=== PATIENT | male | born 1950 | race Caucasian/White ===

== ENCOUNTER 2017-11-14 17:13 | Inpatient (IN) | payer MEDICARE, OTHER ==
[2017-11-14] MEDS: IPRATROPIUM (NEB) 0.5 MG/2.5 ML AMP INH (17:22)
[2017-11-14] MEDS: ALBUTEROL 0.5% (NEB) 2.5 MG/0.5 ML AMP INH (17:22)
[2017-11-14] MEDS: METHYLPREDNISOLONE 125 MG INJ IV (17:42)
[2017-11-14] MEDS: FUROSEMIDE 40 MG INJ IV (17:42)
[2017-11-14] MEDS: ASPIRIN 81 MG TAB PO (17:47)
[2017-11-14 17:53] LABS: ABNORMAL IP MESSAGE 1; HEMATOCRIT 27.6 % (42.0-52.0); HEMOGLOBIN 8.9 g/dl (14.0-18.0); MEAN CORPUSCULAR HEMOGLOBIN 23.7 pg (29.0-33.0); MEAN CORPUSCULAR HGB CONC 32.2 g/dl (32.0-37.0); MEAN CORPUSCULAR VOLUME 73.4 fl (82.0-101.0); MEAN PLATELET VOLUME 10.7 fl (7.4-10.4); PLATELET COUNT 182 10^3/UL (140-415); POSITIVE DIFF @See below; RED BLOOD COUNT 3.76 10^6/ul (4.70-6.10); RED CELL DISTRIBUTION WIDTH 19.7 % (11.5-14.5)
[2017-11-14 17:53] LABS: WHITE BLOOD COUNT 5.4 10^3/ul (4.8-10.8)
[2017-11-14 17:56] LABS: ADD MAN DIFF? YES
[2017-11-14 17:57] LABS: PATH REVIEW? YES
[2017-11-14] MEDS ORDERED: ONDANSETRON 4 MG INJ (18:08)
[2017-11-14] MEDS: ONDANSETRON 4 MG INJ IV (18:12)
[2017-11-14 18:21] LABS: ALANINE AMINOTRANSFERASE 68 IU/L (13-69); ALBUMIN 2.8 g/dl (3.3-4.9); ALBUMIN/GLOBULIN RATIO 0.93; ALKALINE PHOSPHATASE 121 IU/L (42-121); ANION GAP 18 (8-16); ASPARTATE AMINO TRANSFERASE 51 IU/L (15-46); BILIRUBIN,INDIRECT 0.4 mg/dl (0-1.1); BILIRUBIN,TOTAL 0.4 mg/dl (0.2-1.3); BLOOD UREA NITROGEN 97 mg/dl (7-20); CALCIUM 9.1 mg/dl (8.4-10.2); CARBON DIOXIDE 23 mmol/L (21-31); CHLORIDE 93 mmol/L (97-110); GLUCOSE 88 mg/dl (70-220); LIPASE 185 U/L (23-300); POTASSIUM 4.6 mmol/L (3.5-5.1); SODIUM 129 mmol/L (135-144); TOTAL PROTEIN 5.8 g/dl (6.1-8.1)
[2017-11-14 18:28] LABS: CREATININE 3.07 mg/dl (0.61-1.24)
[2017-11-14 18:42] LABS: B-TYPE NATRIURETIC PEPTIDE 44300 PG/ML (0-125)
[2017-11-14 19:31] LABS: BAND NEUTROPHILS #M 1.5 10^3/ul (0.0-0.6); BAND NEUTROPHILS % (M) 28 % (0-4); LYMPHOCYTES % (M) 1 % (15-51); MONOCYTE #M 0.1 10^3/ul (0.3-0.9); MONOCYTES % (M) 3 % (0-11); PLATELET ESTIMATE NORMAL; POIKILOCYTOSIS 2+ (0-0); SEG NEUT #M 3.8 10^3/ul (1.7-7.5); SEGMENTED NEUTROPHILS (M) % 68 % (39-77); SMUDGE%M 10 % (0-0); TARGET CELLS 1+ (0-0)
[2017-11-14] MEDS ORDERED: ONDANSETRON 4 MG INJ IV (20:30)
[2017-11-14] MEDS ORDERED: BISACODYL (EC) 5 MG TAB PO (20:30)
[2017-11-14] MEDS ORDERED: NACL 0.9% 3 ML SYG IV (20:30)
[2017-11-14 21:40] LABS: WHITE BLOOD COUNT 5.6 10^3/ul (4.8-10.8)
[2017-11-14 21:40] LABS: ABNORMAL IP MESSAGE 1; HEMATOCRIT 27.5 % (42.0-52.0); MEAN CORPUSCULAR HGB CONC 32.7 g/dl (32.0-37.0); MEAN CORPUSCULAR VOLUME 73.3 fl (82.0-101.0); MEAN PLATELET VOLUME 9.8 fl (7.4-10.4); PLATELET COUNT 167 10^3/UL (140-415); POSITIVE DIFF @See below; RED BLOOD COUNT 3.75 10^6/ul (4.70-6.10); RED CELL DISTRIBUTION WIDTH 19.4 % (11.5-14.5)
[2017-11-14 21:56] LABS: ADD MAN DIFF? YES
[2017-11-14 22:00] LABS: INR 1.36; PT RATIO 1.3
[2017-11-14 22:01] LABS: CREATINE KINASE 155 IU/L (23-200); PARTIAL THROMBOPLASTIN TIME 35.4 Sec (25.0-35.0)
[2017-11-14 22:17] LABS: CK-MB 4.59 ng/ml (0.0-2.4)
[2017-11-14] MEDS: HEPARIN 1000 UNITS/ML 10 ML INJ IV (22:44)
[2017-11-14] MEDS: HEPARIN 25000 UNITS/250 ML 250 ML IV (22:45)
[2017-11-14 23:11] LABS: ANISOCYTOSIS 1+ (0-0); BAND NEUTROPHILS #M 0.3 10^3/ul (0.0-0.6); BAND NEUTROPHILS % (M) 7 % (0-4); GIANT THROMBO% (M) 9 % (0-0); LYMPHOCYTES #M 0.1 10^3/ul (0.8-2.9); LYMPHOCYTES % (M) 2 % (15-51); MONOCYTES % (M) 1 % (0-11); PLATELET ESTIMATE NORMAL; PLATELET MORPHOLOGY COMMENT @See below; POIKILOCYTOSIS 3+ (0-0); POLYCHROMASIA 1+ (0-0); SEG NEUT #M 5.1 10^3/ul (1.7-7.5); SEGMENTED NEUTROPHILS (M) % 90 % (39-77); SMUDGE%M 8 % (0-0)
[2017-11-15] MEDS: HEPARIN 25000 UNITS/250 ML 250 ML IV (06:00)
[2017-11-15 06:10] LABS: WHITE BLOOD COUNT 6.6 10^3/ul (4.8-10.8)
[2017-11-15 06:10] LABS: ABNORMAL IP MESSAGE 1; HEMATOCRIT 26.6 % (42.0-52.0); HEMOGLOBIN 8.8 g/dl (14.0-18.0); MEAN CORPUSCULAR HGB CONC 33.1 g/dl (32.0-37.0); MEAN CORPUSCULAR VOLUME 72.5 fl (82.0-101.0); MEAN PLATELET VOLUME 9.9 fl (7.4-10.4); PLATELET COUNT 163 10^3/UL (140-415); POSITIVE DIFF @See below; RED BLOOD COUNT 3.67 10^6/ul (4.70-6.10); RED CELL DISTRIBUTION WIDTH 19.9 % (11.5-14.5)
[2017-11-15 06:19] LABS: PARTIAL THROMBOPLASTIN TIME 34.7 Sec (25.0-35.0)
[2017-11-15 06:34] LABS: ADD MAN DIFF? YES
[2017-11-15 06:55] LABS: CK-MB 4.17 ng/ml (0.0-2.4); TROPONIN-I 0.893 ng/ml (0.00-0.12)
[2017-11-15 06:57] LABS: CK INDEX 3.5; CREATINE KINASE 118 IU/L (23-200)
[2017-11-15] MEDS: HEPARIN 1000 UNITS/ML 10 ML INJ IV (07:09)
[2017-11-15 07:23] LABS: ALANINE AMINOTRANSFERASE 66 IU/L (13-69); ALBUMIN 2.5 g/dl (3.3-4.9); ALBUMIN/GLOBULIN RATIO 0.92; ALKALINE PHOSPHATASE 107 IU/L (42-121); ANION GAP 18 (8-16); ASPARTATE AMINO TRANSFERASE 43 IU/L (15-46); BILIRUBIN,INDIRECT 0.4 mg/dl (0-1.1); BILIRUBIN,TOTAL 0.4 mg/dl (0.2-1.3); BLOOD UREA NITROGEN 96 mg/dl (7-20); CALCIUM 8.9 mg/dl (8.4-10.2); CARBON DIOXIDE 24 mmol/L (21-31); CHLORIDE 96 mmol/L (97-110); GLUCOSE 109 mg/dl (70-220); POTASSIUM 3.8 mmol/L (3.5-5.1); SODIUM 134 mmol/L (135-144); TOTAL PROTEIN 5.2 g/dl (6.1-8.1)
[2017-11-15] MEDS: ASPIRIN 81 MG TAB PO (09:19)
[2017-11-15] MEDS: morphine 2 MG INJ IV (09:20)
[2017-11-15] MEDS: FUROSEMIDE 40 MG INJ IV (09:59)
[2017-11-15 10:19] LABS: ANISOCYTOSIS 1+ (0-0); BAND NEUTROPHILS #M 0.8 10^3/ul (0.0-0.6); BAND NEUTROPHILS % (M) 13 % (0-4); GIANT THROMBO% (M) 3 % (0-0); LYMPHOCYTES #M 0.1 10^3/ul (0.8-2.9); LYMPHOCYTES % (M) 2 % (15-51); MONOCYTE #M 0.1 10^3/ul (0.3-0.9); MONOCYTES % (M) 3 % (0-11); PLATELET ESTIMATE NORMAL; POIKILOCYTOSIS 3+ (0-0); POLYCHROMASIA 3+ (0-0); SEG NEUT #M 5.5 10^3/ul (1.7-7.5); SEGMENTED NEUTROPHILS (M) % 82 % (39-77); SMUDGE%M 8 % (0-0)
[2017-11-15] MEDS: CLOPIDOGREL 75 MG TAB PO (12:50)
[2017-11-15] MEDS: AMIODARONE 200 MG TAB PO (12:51)
[2017-11-15 13:49] LABS: IRON 13 ug/dl (35-150)
[2017-11-15 13:53] LABS: PARTIAL THROMBOPLASTIN TIME 30.9 Sec (25.0-35.0)
[2017-11-15 13:58] LABS: % IRON SATURATION 6 % SAT (22-52); TOTAL IRON BINDING CAPACITY 233 ug/dl (241-421)
[2017-11-15] MEDS ORDERED: FUROSEMIDE 40 MG INJ IV (18:00)
[2017-11-15] MEDS: ATORVASTATIN 40 MG TAB PO (21:02)
[2017-11-15] MEDS: ZOLPIDEM 5 MG TAB PO (21:03)
[2017-11-16 03:56] LABS: ADD UMIC NO; UR ASCORBIC ACID NEGATIVE (NEGATIVE); UR BILIRUBIN (Dip) NEGATIVE (NEGATIVE); UR BLOOD (Dip) NEGATIVE (NEGATIVE); UR CLARITY CLEAR (CLEAR); UR COLOR YELLOW (YELLOW); UR GLUCOSE (Dip) NEGATIVE (NEGATIVE); UR KETONES (Dip) NEGATIVE (NEGATIVE); UR LEUKOCYTE ESTERASE (Dip) NEGATIVE Leu/ul (NEGATIVE); UR NITRITE (Dip) NEGATIVE (NEGATIVE); UR SPECIFIC GRAVITY (Dip) 1.013 (1.003-1.030); UR TOTAL PROTEIN (Dip) NEGATIVE (NEGATIVE); UR UROBILINOGEN (Dip) NEGATIVE (NEGATIVE)
[2017-11-16 04:16] LABS: CREATININE,URINE RANDOM 52.33 mg/dl (20-370)
[2017-11-16 04:17] LABS: SODIUM,URINE RANDOM < 13 mmol/L (30-90)
[2017-11-16] MEDS: FUROSEMIDE 20 MG INJ IV ×2 (05:49→18:50)
[2017-11-16 06:25] LABS: WHITE BLOOD COUNT 10.6 10^3/ul (4.8-10.8)
[2017-11-16 06:25] LABS: ABNORMAL IP MESSAGE 1; MEAN CORPUSCULAR HEMOGLOBIN 24.2 pg (29.0-33.0); MEAN CORPUSCULAR HGB CONC 33.3 g/dl (32.0-37.0); MEAN CORPUSCULAR VOLUME 72.5 fl (82.0-101.0); MEAN PLATELET VOLUME 10.4 fl (7.4-10.4); PLATELET COUNT 173 10^3/UL (140-415); POSITIVE DIFF @See below; RED BLOOD COUNT 4.14 10^6/ul (4.70-6.10); RED CELL DISTRIBUTION WIDTH 19.9 % (11.5-14.5)
[2017-11-16 06:42] LABS: ALANINE AMINOTRANSFERASE 66 IU/L (13-69); ALBUMIN 2.8 g/dl (3.3-4.9); ALKALINE PHOSPHATASE 119 IU/L (42-121); ANION GAP 14 (8-16); ASPARTATE AMINO TRANSFERASE 49 IU/L (15-46); BILIRUBIN,INDIRECT 0.4 mg/dl (0-1.1); BILIRUBIN,TOTAL 0.4 mg/dl (0.2-1.3); BLOOD UREA NITROGEN 89 mg/dl (7-20); CALCIUM 9.2 mg/dl (8.4-10.2); CARBON DIOXIDE 29 mmol/L (21-31); CHLORIDE 99 mmol/L (97-110); CREATININE 2.06 mg/dl (0.61-1.24); GLUCOSE 128 mg/dl (70-220); POTASSIUM 3.2 mmol/L (3.5-5.1); SODIUM 139 mmol/L (135-144); TOTAL PROTEIN 5.9 g/dl (6.1-8.1)
[2017-11-16 06:43] LABS: PHOSPHORUS 4.7 mg/dl (2.5-4.9)
[2017-11-16 06:43] LABS: MAGNESIUM 2.4 mg/dl (1.7-2.5)
[2017-11-16 06:47] LABS: ADD MAN DIFF? YES
[2017-11-16] MEDS: AMIODARONE 200 MG TAB PO (08:46)
[2017-11-16] MEDS: CLOPIDOGREL 75 MG TAB PO (08:46)
[2017-11-16] MEDS: ASPIRIN 81 MG TAB PO (08:47)
[2017-11-16 10:12] LABS: BAND NEUTROPHILS #M 0.4 10^3/ul (0.0-0.6); BAND NEUTROPHILS % (M) 4 % (0-4); BURR CELLS 1+ (0-0); GIANT THROMBO% (M) 4 % (0-0); LYMPHOCYTES #M 0.3 10^3/ul (0.8-2.9); LYMPHOCYTES % (M) 3 % (15-51); PLATELET ESTIMATE NORMAL; POIKILOCYTOSIS 1+ (0-0); POLYCHROMASIA 1+ (0-0); PROMYELOCYTES #M 0.2 10^3/ul (0-0); PROMYELOCYTES % (M) 2 % (0-0); SEG NEUT #M 9.7 10^3/ul (1.7-7.5); SEGMENTED NEUTROPHILS (M) % 91 % (39-77); SMUDGE%M 10 % (0-0); TARGET CELLS 1+ (0-0)
[2017-11-16] MEDS: POTASSIUM CHLORIDE (SR) 20 MEQ TAB PO (14:45)
[2017-11-16] MEDS: ACETAMINOPHEN 325 MG TAB PO (18:45)
[2017-11-16] MEDS: ATORVASTATIN 40 MG TAB PO (21:30)
[2017-11-16] MEDS: ZOLPIDEM 5 MG TAB PO (21:31)
[2017-11-17] MEDS: morphine 2 MG INJ IV (01:00)
[2017-11-17] MEDS: ACETAMINOPHEN 325 MG TAB PO ×2 (09:55→15:55)
[2017-11-17] MEDS: AMIODARONE 200 MG TAB PO (09:56)
[2017-11-17] MEDS: ASPIRIN 81 MG TAB PO (09:56)
[2017-11-17] MEDS: CLOPIDOGREL 75 MG TAB PO (09:56)
[2017-11-17 12:34] LABS: PLATELET COUNT 153 10^3/UL (140-415)
[2017-11-17 12:35] LABS: ABNORMAL IP MESSAGE 1; HEMOGLOBIN 10.4 g/dl (14.0-18.0); MEAN CORPUSCULAR HEMOGLOBIN 23.4 pg (29.0-33.0); MEAN CORPUSCULAR HGB CONC 31.5 g/dl (32.0-37.0); MEAN CORPUSCULAR VOLUME 74.2 fl (82.0-101.0); NUCLEATED RED BLOOD CELLS% 0.4 /100WBC (0.0-0.0); PLATELET COUNT 155 10^3/UL (140-415); POSITIVE DIFF @See below; RED BLOOD COUNT 4.45 10^6/ul (4.70-6.10); RED CELL DISTRIBUTION WIDTH 20.4 % (11.5-14.5)
[2017-11-17 12:35] LABS: WHITE BLOOD COUNT 11.4 10^3/ul (4.8-10.8)
[2017-11-17 12:40] LABS: ADD MAN DIFF? YES
[2017-11-17 12:50] LABS: ANION GAP 10 (8-16); BLOOD UREA NITROGEN 79 mg/dl (7-20); CALCIUM 8.8 mg/dl (8.4-10.2); CARBON DIOXIDE 31 mmol/L (21-31); CHLORIDE 99 mmol/L (97-110); CREATININE 1.38 mg/dl (0.61-1.24); GLUCOSE 156 mg/dl (70-220); POTASSIUM 3.6 mmol/L (3.5-5.1); SODIUM 136 mmol/L (135-144)
[2017-11-17 13:00] LABS: INR 1.13; PARTIAL THROMBOPLASTIN TIME 31.8 Sec (25.0-35.0); PROTIME 14.7 Sec (11.9-14.9); PT RATIO 1.1; THROMBIN TIME 16.7 SEC (13.8-19.1)
[2017-11-17 13:25] LABS: ANISOCYTOSIS 1+ (0-0); BAND NEUTROPHILS #M 0.2 10^3/ul (0.0-0.6); BAND NEUTROPHILS % (M) 2 % (0-4); ERYTHROBLAST% (NRBC) (M) 1 % (0-0); HYPOCHROMASIA 1+ (0-0); LYMPHOCYTES #M 0.5 10^3/ul (0.8-2.9); LYMPHOCYTES % (M) 5 % (15-51); MICROCYTOSIS 1+ (0-0); MONOCYTE #M 0.1 10^3/ul (0.3-0.9); MONOCYTES % (M) 1 % (0-11); OVALOCYTES 2+ (0-0); PLATELET ESTIMATE NORMAL; POIKILOCYTOSIS 2+ (0-0); POLYCHROMASIA 1+ (0-0); SEG NEUT #M 10.5 10^3/ul (1.7-7.5); SEGMENTED NEUTROPHILS (M) % 92 % (39-77); SMUDGE%M 26 % (0-0)
[2017-11-17] MEDS: FUROSEMIDE 20 MG INJ IV (18:00)
[2017-11-17] MEDS: LIDOCAINE 1% (MPF) 5 ML VIAL (18:35)
[2017-11-17] MEDS: ZOLPIDEM 5 MG TAB PO (21:21)
[2017-11-17] MEDS: ATORVASTATIN 40 MG TAB PO (21:21)
[2017-11-18] MEDS: FUROSEMIDE 20 MG INJ IV (06:00)
[2017-11-18] MEDS: AMIODARONE 200 MG TAB PO (08:08)
[2017-11-18] MEDS: CLOPIDOGREL 75 MG TAB PO (08:08)
[2017-11-18] MEDS: ASPIRIN 81 MG TAB PO (08:09)
[2017-11-18] MEDS: ACETAMINOPHEN 325 MG TAB PO (08:09)
[2017-11-18] MEDS: SOD FERRIC GLUC COMPLX 125 MG in SOD CHLORIDE 0.9% 100 ML IVPB (11:00)
[2017-11-18] MEDS: ACET/BUTAL/CAFF TAB PO (13:22)
[2017-11-18 14:29] LABS: ABNORMAL IP MESSAGE 1; HEMATOCRIT 33.7 % (42.0-52.0); HEMOGLOBIN 10.7 g/dl (14.0-18.0); MEAN CORPUSCULAR HEMOGLOBIN 23.5 pg (29.0-33.0); MEAN CORPUSCULAR HGB CONC 31.8 g/dl (32.0-37.0); MEAN CORPUSCULAR VOLUME 73.9 fl (82.0-101.0); MEAN PLATELET VOLUME 10.2 fl (7.4-10.4); NUCLEATED RED BLOOD CELLS% 0.2 /100WBC (0.0-0.0); PLATELET COUNT 157 10^3/UL (140-415); POSITIVE DIFF @See below; RED BLOOD COUNT 4.56 10^6/ul (4.70-6.10); RED CELL DISTRIBUTION WIDTH 20.1 % (11.5-14.5)
[2017-11-18 14:41] LABS: ADD MAN DIFF? YES
[2017-11-18 14:44] LABS: ANION GAP 10 (8-16); BLOOD UREA NITROGEN 57 mg/dl (7-20); CALCIUM 8.8 mg/dl (8.4-10.2); CARBON DIOXIDE 32 mmol/L (21-31); CHLORIDE 97 mmol/L (97-110); CREATININE 1.15 mg/dl (0.61-1.24); GLUCOSE 98 mg/dl (70-220); POTASSIUM 3.4 mmol/L (3.5-5.1); SODIUM 136 mmol/L (135-144)
[2017-11-18 15:47] LABS: ANISOCYTOSIS 1+ (0-0); BAND NEUTROPHILS #M 0.3 10^3/ul (0.0-0.6); BAND NEUTROPHILS % (M) 2 % (0-4); EOSINOPHILS % (M) 1 % (0-7); ERYTHROBLAST% (NRBC) (M) 1 % (0-0); HYPOCHROMASIA 1+ (0-0); LYMPHOCYTES #M 0.1 10^3/ul (0.8-2.9); LYMPHOCYTES % (M) 1 % (15-51); MICROCYTOSIS 1+ (0-0); MONOCYTE #M 0.3 10^3/ul (0.3-0.9); MONOCYTES % (M) 2 % (0-11); OVALOCYTES 1+ (0-0); PLATELET ESTIMATE NORMAL; POIKILOCYTOSIS 1+ (0-0); POLYCHROMASIA 1+ (0-0); REACTIVE LYMPHOCYTES #M 0.1 10^3/ul (0.0-0.0); REACTIVE LYMPHOCYTES% (M) 1 % (0-0); SEG NEUT #M 15.9 10^3/ul (1.7-7.5); SEGMENTED NEUTROPHILS (M) % 93 % (39-77); SMUDGE%M 4 % (0-0)
[2017-11-18] MEDS: FUROSEMIDE 40 MG INJ IV (16:05)
[2017-11-18] MEDS: POTASSIUM CHLORIDE 20 MEQ POWDER FOR ORAL SOLN PO (16:05)
[2017-11-18 16:16] LABS: CREATININE, RANDOM URINE 66 mg/dL (20-370); MICROALBUMIN 0.3 mg/dL; MICROALBUMIN/CREATININE RATIO 5 (<30)
[2017-11-18] MEDS: ZOLPIDEM 5 MG TAB PO (22:46)
[2017-11-18] MEDS: ATORVASTATIN 40 MG TAB PO (22:46)
[2017-11-19] MEDS: CLOPIDOGREL 75 MG TAB PO (09:04)
[2017-11-19] MEDS: AMIODARONE 200 MG TAB PO (09:04)
[2017-11-19] MEDS: ASPIRIN 81 MG TAB PO (09:04)
[2017-11-19] MEDS: SOD FERRIC GLUC COMPLX 125 MG in SOD CHLORIDE 0.9% 100 ML IVPB (10:52)
[2017-11-19] MEDS: ACET/BUTAL/CAFF TAB PO (10:52)
[2017-11-19 11:36] LABS: ADD MAN DIFF? NO
[2017-11-19 11:47] LABS: ABNORMAL IP MESSAGE 1; BASOPHIL # 0.1 10^3/ul (0.0-0.1); BASOPHILS % 0.3 % (0.0-2.0); HEMATOCRIT 35.1 % (42.0-52.0); HEMOGLOBIN 11.3 g/dl (14.0-18.0); LYMPHOCYTES # 0.5 10^3/ul (0.8-2.9); LYMPHOCYTES % 2.7 % (15.0-51.0); MEAN CORPUSCULAR HEMOGLOBIN 23.6 pg (29.0-33.0); MEAN CORPUSCULAR HGB CONC 32.2 g/dl (32.0-37.0); MEAN CORPUSCULAR VOLUME 73.4 fl (82.0-101.0); MEAN PLATELET VOLUME 10.6 fl (7.4-10.4); MONOCYTE # 0.9 10^3/ul (0.3-0.9); MONOCYTES % 4.7 % (0.0-11.0); NEUTROPHIL # 17.6 10^3/ul (1.6-7.5); NEUTROPHILS % 88.3 % (39.0-77.0); NUCLEATED RED BLOOD CELLS # 0.1 10^3/ul (0.0-0.0); NUCLEATED RED BLOOD CELLS% 0.4 /100WBC (0.0-0.0); PLATELET COUNT 178 10^3/UL (140-415); POSITIVE DIFF @See below; RED BLOOD COUNT 4.78 10^6/ul (4.70-6.10); RED CELL DISTRIBUTION WIDTH 21.2 % (11.5-14.5)
[2017-11-19 11:47] LABS: WHITE BLOOD COUNT 19.9 10^3/ul (4.8-10.8)
[2017-11-19 12:17] LABS: ALANINE AMINOTRANSFERASE 60 IU/L (13-69); ALBUMIN 2.7 g/dl (3.3-4.9); ALBUMIN/GLOBULIN RATIO 0.79; ALKALINE PHOSPHATASE 157 IU/L (42-121); ANION GAP 10 (8-16); ASPARTATE AMINO TRANSFERASE 70 IU/L (15-46); BILIRUBIN,INDIRECT 0.8 mg/dl (0-1.1); BILIRUBIN,TOTAL 0.9 mg/dl (0.2-1.3); BLOOD UREA NITROGEN 47 mg/dl (7-20); CALCIUM 9.2 mg/dl (8.4-10.2); CARBON DIOXIDE 32 mmol/L (21-31); CHLORIDE 97 mmol/L (97-110); CREATININE 0.99 mg/dl (0.61-1.24); GLUCOSE 91 mg/dl (70-220); POTASSIUM 3.9 mmol/L (3.5-5.1); SODIUM 135 mmol/L (135-144); TOTAL PROTEIN 6.1 g/dl (6.1-8.1)
[2017-11-19] MEDS: POTASSIUM CHLORIDE 20 MEQ POWDER FOR ORAL SOLN PO (12:43)
[2017-11-19 13:32] LABS: ANISOCYTOSIS 1+ (0-0); BAND NEUTROPHILS #M 0.7 10^3/ul (0.0-0.6); BAND NEUTROPHILS % (M) 4 % (0-4); ERYTHROBLAST% (NRBC) (M) 2 % (0-0); GIANT THROMBO% (M) 1 % (0-0); METAMYELOCYTES #M 0.3 10^3/ul (0.0-0.0); METAMYELOCYTES %M 2 % (0-0); MONOCYTE #M 1.5 10^3/ul (0.3-0.9); MONOCYTES % (M) 8 % (0-11); PLATELET ESTIMATE NORMAL; POIKILOCYTOSIS 2+ (0-0); POLYCHROMASIA 2+ (0-0); SEG NEUT #M 17.1 10^3/ul (1.6-7.5); SEGMENTED NEUTROPHILS (M) % 85 % (39-77); SMUDGE%M 1 % (0-0)
[2017-11-19] MEDS: FUROSEMIDE 40 MG TAB PO (17:21)
[2017-11-19] MEDS ORDERED: VANCOMYCIN IV PER PHARMACY XX (17:30)
[2017-11-19] MEDS: VANCOMYCIN 1.25 GM in SOD CHLORIDE 0.45% 250 ML IVPB (18:03)
[2017-11-19] MEDS: ATORVASTATIN 40 MG TAB PO (20:17)
[2017-11-19] MEDS: ZOLPIDEM 5 MG TAB PO (22:30)
[2017-11-20] MEDS: ACETAMINOPHEN 325 MG TAB PO (00:38)
[2017-11-20] MEDS: FUROSEMIDE 40 MG TAB PO ×2 (05:28→18:53)
[2017-11-20] MEDS: ASPIRIN 81 MG TAB PO (09:21)
[2017-11-20] MEDS: AMIODARONE 200 MG TAB PO (09:21)
[2017-11-20] MEDS: CLOPIDOGREL 75 MG TAB PO (09:21)
[2017-11-20 09:38] LABS: ANION GAP 9 (8-16); BLOOD UREA NITROGEN 38 mg/dl (7-20); CARBON DIOXIDE 31 mmol/L (21-31); CHLORIDE 98 mmol/L (97-110); CREATININE 1.03 mg/dl (0.61-1.24); GLUCOSE 84 mg/dl (70-220); POTASSIUM 3.3 mmol/L (3.5-5.1); SODIUM 135 mmol/L (135-144)
[2017-11-20 09:44] LABS: ABNORMAL IP MESSAGE 1; HEMOGLOBIN 11.9 g/dl (14.0-18.0); MEAN CORPUSCULAR HEMOGLOBIN 23.2 pg (29.0-33.0); MEAN CORPUSCULAR HGB CONC 32.2 g/dl (32.0-37.0); MEAN CORPUSCULAR VOLUME 72.3 fl (82.0-101.0); MEAN PLATELET VOLUME 10.5 fl (7.4-10.4); NUCLEATED RED BLOOD CELLS% 0.3 /100WBC (0.0-0.0); PLATELET COUNT 206 10^3/UL (140-415); POSITIVE DIFF @See below; RED BLOOD COUNT 5.12 10^6/ul (4.70-6.10); RED CELL DISTRIBUTION WIDTH 21.5 % (11.5-14.5)
[2017-11-20 09:44] LABS: WHITE BLOOD COUNT 27.5 10^3/ul (4.8-10.8)
[2017-11-20 09:52] LABS: ADD MAN DIFF? YES
[2017-11-20] MEDS: SOD FERRIC GLUC COMPLX 125 MG in SOD CHLORIDE 0.9% 100 ML IVPB (11:25)
[2017-11-20] MEDS: POTASSIUM CHLORIDE 20 MEQ POWDER FOR ORAL SOLN PO (11:25)
[2017-11-20 12:22] LABS: ANISOCYTOSIS 1+ (0-0); BAND NEUTROPHILS #M 4.4 10^3/ul (0.0-0.6); BAND NEUTROPHILS % (M) 16 % (0-4); BURR CELLS 1+ (0-0); EOSINOPHILS % (M) 2 % (0-7); HYPOCHROMASIA 1+ (0-0); MONOCYTE #M 1.3 10^3/ul (0.3-0.9); MONOCYTES % (M) 5 % (0-11); PLATELET ESTIMATE NORMAL; POIKILOCYTOSIS 1+ (0-0); POLYCHROMASIA 1+ (0-0); REACTIVE LYMPHOCYTES #M 0.5 10^3/ul (0.0-0.0); REACTIVE LYMPHOCYTES% (M) 2 % (0-0); ROULEAU 1+ (0-0); SEG NEUT #M 22.1 10^3/ul (1.6-7.5); SEGMENTED NEUTROPHILS (M) % 76 % (39-77)
[2017-11-20] MEDS: clonAZEPAM 0.5 MG TAB PO (15:06)
[2017-11-20] MEDS: ATORVASTATIN 40 MG TAB PO (20:06)
[2017-11-20] MEDS: ACET/BUTAL/CAFF TAB PO (20:07)
[2017-11-21] MEDS: ACETAMINOPHEN 325 MG TAB PO ×2 (02:29→20:40)
[2017-11-21] MEDS: FUROSEMIDE 40 MG TAB PO (06:36)
[2017-11-21 08:10] LABS: ABNORMAL IP MESSAGE 1; HEMATOCRIT 33.8 % (42.0-52.0); MEAN CORPUSCULAR HEMOGLOBIN 23.7 pg (29.0-33.0); MEAN CORPUSCULAR HGB CONC 32.5 g/dl (32.0-37.0); MEAN CORPUSCULAR VOLUME 72.7 fl (82.0-101.0); MEAN PLATELET VOLUME 11.3 fl (7.4-10.4); NUCLEATED RED BLOOD CELLS% 0.3 /100WBC (0.0-0.0); PLATELET COUNT 272 10^3/UL (140-415); POSITIVE DIFF @See below; RED BLOOD COUNT 4.65 10^6/ul (4.70-6.10); RED CELL DISTRIBUTION WIDTH 21.5 % (11.5-14.5)
[2017-11-21 08:15] LABS: ADD MAN DIFF? YES
[2017-11-21 08:44] LABS: ANION GAP 12 (8-16); BLOOD UREA NITROGEN 35 mg/dl (7-20); CALCIUM 8.8 mg/dl (8.4-10.2); CARBON DIOXIDE 30 mmol/L (21-31); CHLORIDE 98 mmol/L (97-110); CREATININE 1.16 mg/dl (0.61-1.24); GLUCOSE 113 mg/dl (70-220); POTASSIUM 3.4 mmol/L (3.5-5.1); SODIUM 137 mmol/L (135-144)
[2017-11-21] MEDS: ASPIRIN 81 MG TAB PO (08:46)
[2017-11-21] MEDS: CLOPIDOGREL 75 MG TAB PO (08:46)
[2017-11-21] MEDS: AMIODARONE 200 MG TAB PO (08:47)
[2017-11-21 09:05] LABS: VANCOMYCIN,RANDOM 5.8 ug/ml
[2017-11-21 09:58] LABS: ANISOCYTOSIS 1+ (0-0); BURR CELLS 1+ (0-0); HYPOCHROMASIA 1+ (0-0); LYMPHOCYTES #M 0.5 10^3/ul (0.8-2.9); LYMPHOCYTES % (M) 2 % (15-51); METAMYELOCYTES #M 0.2 10^3/ul (0.0-0.0); METAMYELOCYTES %M 1 % (0-0); MICROCYTOSIS 1+ (0-0); MONOCYTE #M 1.3 10^3/ul (0.3-0.9); MONOCYTES % (M) 5 % (0-11); MYELOCYTES #M 0.5 10^3/ul (0.0-0.0); MYELOCYTES % (M) 2 % (0-0); PLATELET ESTIMATE NORMAL; POIKILOCYTOSIS 1+ (0-0); POLYCHROMASIA 1+ (0-0); PROMYELOCYTES #M 0.2 10^3/ul (0-0); PROMYELOCYTES % (M) 1 % (0-0); SEGMENTED NEUTROPHILS (M) % 89 % (39-77); SMUDGE%M 7 % (0-0); TARGET CELLS 1+ (0-0)
[2017-11-21] MEDS: SOD FERRIC GLUC COMPLX 125 MG in SOD CHLORIDE 0.9% 100 ML IVPB (10:54)
[2017-11-21] MEDS ORDERED: PIPER-TAZO 3.375 GM IV (PMX) 100 ML IVPB (12:00)
[2017-11-21] MEDS ORDERED: VANCOMYCIN 1 GM 250 ML IVPB (12:00)
[2017-11-21] MEDS: CEFEPIME 2GM/50 ML (PMX) 50 ML IVPB (12:28)
[2017-11-21] MEDS: POTASSIUM CHLORIDE (SR) 8 MEQ CAP PO (12:28)
[2017-11-21] MEDS: POTASSIUM CHLORIDE 20 MEQ POWDER FOR ORAL SOLN PO (13:01)
[2017-11-21] MEDS: FUROSEMIDE 40 MG INJ IV ×2 (13:02→17:32)
[2017-11-21] MEDS ORDERED: VANCOMYCIN 1.25 GM in SOD CHLORIDE 0.45% 250 ML IVPB (18:00)
[2017-11-21] MEDS: clonAZEPAM 0.5 MG TAB PO (18:46)
[2017-11-21] MEDS: ATORVASTATIN 40 MG TAB PO (20:41)
[2017-11-21] MEDS: CEFAZOLIN 1 GM/50 ML (PMX) 50 ML IVPB (22:00)
[2017-11-21] MEDS: ZOLPIDEM 5 MG TAB PO (22:01)
[2017-11-22] MEDS: CEFAZOLIN 1 GM/50 ML (PMX) 50 ML IVPB ×3 (05:43→21:06)
[2017-11-22 07:28] LABS: WHITE BLOOD COUNT 28.1 10^3/ul (4.8-10.8)
[2017-11-22 07:28] LABS: ABNORMAL IP MESSAGE 1; HEMATOCRIT 35.1 % (42.0-52.0); MEAN CORPUSCULAR HEMOGLOBIN 23.4 pg (29.0-33.0); MEAN CORPUSCULAR HGB CONC 31.3 g/dl (32.0-37.0); MEAN CORPUSCULAR VOLUME 74.5 fl (82.0-101.0); MEAN PLATELET VOLUME 10.8 fl (7.4-10.4); NUCLEATED RED BLOOD CELLS% 0.2 /100WBC (0.0-0.0); PLATELET COUNT 349 10^3/UL (140-415); POSITIVE DIFF @See below; RED BLOOD COUNT 4.71 10^6/ul (4.70-6.10); RED CELL DISTRIBUTION WIDTH 21.7 % (11.5-14.5)
[2017-11-22 07:40] LABS: ADD MAN DIFF? YES
[2017-11-22 07:50] LABS: ANION GAP 12 (8-16); BLOOD UREA NITROGEN 33 mg/dl (7-20); CALCIUM 8.5 mg/dl (8.4-10.2); CARBON DIOXIDE 31 mmol/L (21-31); CHLORIDE 98 mmol/L (97-110); CREATININE 1.14 mg/dl (0.61-1.24); GLUCOSE 123 mg/dl (70-220); POTASSIUM 3.4 mmol/L (3.5-5.1); SODIUM 138 mmol/L (135-144)
[2017-11-22] MEDS: DOCUSATE SODIUM 100 MG CAP PO (08:57)
[2017-11-22] MEDS: POTASSIUM CHLORIDE (SR) 20 MEQ TAB PO (08:57)
[2017-11-22] MEDS: ASPIRIN 81 MG TAB PO (08:57)
[2017-11-22] MEDS: AMIODARONE 200 MG TAB PO (08:57)
[2017-11-22] MEDS: CLOPIDOGREL 75 MG TAB PO (08:58)
[2017-11-22 09:03] LABS: ANISOCYTOSIS 1+ (0-0); BAND NEUTROPHILS #M 0.5 10^3/ul (0.0-0.6); BAND NEUTROPHILS % (M) 2 % (0-4); BURR CELLS 3+ (0-0); LYMPHOCYTES #M 0.2 10^3/ul (0.8-2.9); LYMPHOCYTES % (M) 1 % (15-51); MICROCYTOSIS 1+ (0-0); MONOCYTE #M 1.9 10^3/ul (0.3-0.9); MONOCYTES % (M) 7 % (0-11); MYELOCYTES #M 0.2 10^3/ul (0.0-0.0); MYELOCYTES % (M) 1 % (0-0); PLATELET ESTIMATE NORMAL; POIKILOCYTOSIS 3+ (0-0); POLYCHROMASIA 3+ (0-0); SEG NEUT #M 25.1 10^3/ul (1.6-7.5); SEGMENTED NEUTROPHILS (M) % 89 % (39-77); SMUDGE%M 1 % (0-0)
[2017-11-22] MEDS: ACETAMINOPHEN 325 MG TAB PO ×2 (09:04→16:37)
[2017-11-22] MEDS: SOD FERRIC GLUC COMPLX 125 MG in SOD CHLORIDE 0.9% 100 ML IVPB (11:48)
[2017-11-22] MEDS ORDERED: POTASSIUM CHLORIDE (SR) 20 MEQ TAB PO (13:12)
[2017-11-22] MEDS: FUROSEMIDE 40 MG INJ IV ×2 (14:33→17:04)
[2017-11-22] MEDS: clonAZEPAM 0.5 MG TAB PO (16:57)
[2017-11-22] MEDS: ATORVASTATIN 40 MG TAB PO (20:58)
[2017-11-22] MEDS: ZOLPIDEM 5 MG TAB PO (22:12)
[2017-11-22] MEDS: LEVALBUTEROL (NEB) 0.63 MG/3 ML AMP HHN (22:41)
[2017-11-23] MEDS: ACETAMINOPHEN 325 MG TAB PO (01:11)
[2017-11-23] MEDS: BUMETANIDE 1 MG TAB PO ×2 (05:31→17:48)
[2017-11-23] MEDS: CEFAZOLIN 1 GM/50 ML (PMX) 50 ML IVPB ×3 (05:31→21:54)
[2017-11-23 08:18] LABS: ABNORMAL IP MESSAGE 1; HEMATOCRIT 39.3 % (42.0-52.0); HEMOGLOBIN 12.5 g/dl (14.0-18.0); MEAN CORPUSCULAR HEMOGLOBIN 23.5 pg (29.0-33.0); MEAN CORPUSCULAR HGB CONC 31.8 g/dl (32.0-37.0); MEAN PLATELET VOLUME 10.7 fl (7.4-10.4); NUCLEATED RED BLOOD CELLS% 0.2 /100WBC (0.0-0.0); PLATELET COUNT 418 10^3/UL (140-415); POSITIVE DIFF @See below; RED BLOOD COUNT 5.31 10^6/ul (4.70-6.10); RED CELL DISTRIBUTION WIDTH 22.2 % (11.5-14.5)
[2017-11-23 08:18] LABS: WHITE BLOOD COUNT 28.7 10^3/ul (4.8-10.8)
[2017-11-23 08:27] LABS: ADD MAN DIFF? YES
[2017-11-23 08:57] LABS: ANION GAP 14 (8-16); BLOOD UREA NITROGEN 36 mg/dl (7-20); CARBON DIOXIDE 29 mmol/L (21-31); CHLORIDE 99 mmol/L (97-110); GLUCOSE 111 mg/dl (70-220); POTASSIUM 4.3 mmol/L (3.5-5.1); SODIUM 138 mmol/L (135-144)
[2017-11-23] MEDS: clonAZEPAM 0.5 MG TAB PO ×2 (10:29→17:32)
[2017-11-23] MEDS: ASPIRIN 81 MG TAB PO (10:29)
[2017-11-23] MEDS: AMIODARONE 200 MG TAB PO (10:32)
[2017-11-23 10:46] LABS: ANISOCYTOSIS 2+ (0-0); BAND NEUTROPHILS #M 0.2 10^3/ul (0.0-0.6); BAND NEUTROPHILS % (M) 1 % (0-4); BURR CELLS 1+ (0-0); ERYTHROBLAST% (NRBC) (M) 1 % (0-0); LYMPHOCYTES #M 1.1 10^3/ul (0.8-2.9); LYMPHOCYTES % (M) 4 % (15-51); METAMYELOCYTES #M 0.2 10^3/ul (0.0-0.0); METAMYELOCYTES %M 1 % (0-0); MONOCYTE #M 3.7 10^3/ul (0.3-0.9); MONOCYTES % (M) 13 % (0-11); PLATELET ESTIMATE NORMAL; POIKILOCYTOSIS 1+ (0-0); POLYCHROMASIA 3+ (0-0); SEG NEUT #M 23.3 10^3/ul (1.6-7.5); SEGMENTED NEUTROPHILS (M) % 81 % (39-77); SMUDGE%M 3 % (0-0)
[2017-11-23] MEDS: LEVALBUTEROL (NEB) 0.63 MG/3 ML AMP HHN (16:10)
[2017-11-23] MEDS: ATORVASTATIN 40 MG TAB PO (19:54)
[2017-11-23] MEDS: LORAZEPAM 2 MG INJ IV (21:54)
[2017-11-23] MEDS: morphine LIQ (10 MG/5 ML) CUP PO (22:33)
[2017-11-23 23:17] LABS: AADO2 Arterial 107.9 mmHg (7.0-24.0); Allen Test ACCEPTAB; Arterial Base Excess 1.5 mmol/L (-3.0-3); Arterial Blood Gas Oxygen Sat 92.1 mmHG (95.0-98.0); Arterial COHb 0.5 % (0.0-3.0); Arterial Fraction of Oxyhgb 91.5 % (93.0-99.0); Arterial MetHb 0.1 % (0.0-1.5); Arterial pCO2 35.8 mmhg (35-45); MODE NASAL CANNULA; Site Left Radial
[2017-11-23] MEDS: HYDROmorphONE 1 MG/ML SYG IV (23:30)
[2017-11-24 06:54] LABS: ABNORMAL IP MESSAGE 1; HEMATOCRIT 33.5 % (42.0-52.0); HEMOGLOBIN 10.5 g/dl (14.0-18.0); MEAN CORPUSCULAR HEMOGLOBIN 23.4 pg (29.0-33.0); MEAN CORPUSCULAR HGB CONC 31.3 g/dl (32.0-37.0); MEAN CORPUSCULAR VOLUME 74.8 fl (82.0-101.0); MEAN PLATELET VOLUME 10.3 fl (7.4-10.4); NUCLEATED RED BLOOD CELLS% 0.1 /100WBC (0.0-0.0); PLATELET COUNT 429 10^3/UL (140-415); POSITIVE DIFF @See below; RED BLOOD COUNT 4.48 10^6/ul (4.70-6.10); RED CELL DISTRIBUTION WIDTH 21.1 % (11.5-14.5)
[2017-11-24 06:54] LABS: WHITE BLOOD COUNT 27.1 10^3/ul (4.8-10.8)
[2017-11-24] MEDS: CEFAZOLIN 1 GM/50 ML (PMX) 50 ML IVPB ×3 (06:55→22:33)
[2017-11-24] MEDS: BUMETANIDE 1 MG TAB PO ×2 (06:55→17:50)
[2017-11-24 07:14] LABS: ADD MAN DIFF? YES
[2017-11-24 07:27] LABS: INR 1.27; PROTIME 16.1 Sec (11.9-14.9); PT RATIO 1.3
[2017-11-24 07:28] LABS: PARTIAL THROMBOPLASTIN TIME 46.4 Sec (25.0-35.0)
[2017-11-24 07:29] LABS: ANION GAP 13 (8-16); BLOOD UREA NITROGEN 37 mg/dl (7-20); CALCIUM 8.4 mg/dl (8.4-10.2); CARBON DIOXIDE 27 mmol/L (21-31); CHLORIDE 99 mmol/L (97-110); CREATININE 1.21 mg/dl (0.61-1.24); GLUCOSE 97 mg/dl (70-220); POTASSIUM 4.4 mmol/L (3.5-5.1); SODIUM 135 mmol/L (135-144)
[2017-11-24 09:16] LABS: ANISOCYTOSIS 1+ (0-0); BAND NEUTROPHILS #M 0.8 10^3/ul (0.0-0.6); BAND NEUTROPHILS % (M) 3 % (0-4); GIANT THROMBO% (M) 1 % (0-0); LYMPHOCYTES #M 0.8 10^3/ul (0.8-2.9); LYMPHOCYTES % (M) 3 % (15-51); METAMYELOCYTES #M 0.5 10^3/ul (0.0-0.0); METAMYELOCYTES %M 2 % (0-0); MONOCYTES % (M) 15 % (0-11); PLATELET ESTIMATE INCREASED; SEG NEUT #M 21.1 10^3/ul (1.6-7.5); SEGMENTED NEUTROPHILS (M) % 77 % (39-77); SMUDGE%M 3 % (0-0)
[2017-11-24] MEDS: AMIODARONE 200 MG TAB PO (09:49)
[2017-11-24] MEDS: ASPIRIN 81 MG TAB PO (09:51)
[2017-11-24 12:06] LABS: PROCALCITONIN 0.41 ng/mL (<0.10)
[2017-11-24] MEDS: LIDOCAINE 1% (MPF) 5 ML VIAL (12:09)
[2017-11-24] MEDS: clonAZEPAM 0.5 MG TAB PO (20:19)
[2017-11-24] MEDS: ATORVASTATIN 40 MG TAB PO (20:20)
[2017-11-24] MEDS: ZOLPIDEM 5 MG TAB PO (22:27)
[2017-11-25] MEDS: CEFAZOLIN 1 GM/50 ML (PMX) 50 ML IVPB ×3 (05:11→22:15)
[2017-11-25] MEDS: BUMETANIDE 1 MG TAB PO ×2 (05:11→17:26)
[2017-11-25] MEDS: ASPIRIN 81 MG TAB PO ×2 (09:00→17:27)
[2017-11-25] MEDS: AMIODARONE 200 MG TAB PO (09:22)
[2017-11-25 09:27] LABS: ADD MAN DIFF? NO
[2017-11-25 09:31] LABS: WHITE BLOOD COUNT 24.1 10^3/ul (4.8-10.8)
[2017-11-25 09:31] LABS: ABNORMAL IP MESSAGE 1; BASOPHILS % 0.2 % (0.0-2.0); HEMATOCRIT 31.6 % (42.0-52.0); HEMOGLOBIN 9.9 g/dl (14.0-18.0); LYMPHOCYTES # 0.6 10^3/ul (0.8-2.9); LYMPHOCYTES % 2.4 % (15.0-51.0); MEAN CORPUSCULAR HGB CONC 31.3 g/dl (32.0-37.0); MEAN CORPUSCULAR VOLUME 76.5 fl (82.0-101.0); MEAN PLATELET VOLUME 10.3 fl (7.4-10.4); MONOCYTE # 3.4 10^3/ul (0.3-0.9); NEUTROPHIL # 19.2 10^3/ul (1.6-7.5); NEUTROPHILS % 79.5 % (39.0-77.0); PLATELET COUNT 428 10^3/UL (140-415); POSITIVE DIFF @See below; RED BLOOD COUNT 4.13 10^6/ul (4.70-6.10); RED CELL DISTRIBUTION WIDTH 21.5 % (11.5-14.5)
[2017-11-25 10:09] LABS: ANION GAP 11 (8-16); BLOOD UREA NITROGEN 37 mg/dl (7-20); CALCIUM 8.1 mg/dl (8.4-10.2); CARBON DIOXIDE 28 mmol/L (21-31); CHLORIDE 101 mmol/L (97-110); CREATININE 1.16 mg/dl (0.61-1.24); GLUCOSE 99 mg/dl (70-220); MAGNESIUM 1.6 mg/dl (1.7-2.5); PHOSPHORUS 2.8 mg/dl (2.5-4.9); POTASSIUM 3.6 mmol/L (3.5-5.1); SODIUM 136 mmol/L (135-144)
[2017-11-25] MEDS ORDERED: LIDOCAINE 1%/EPI 30 ML INJ (11:01)
[2017-11-25] MEDS: morphine LIQ (10 MG/5 ML) CUP PO (12:24)
[2017-11-25] MEDS: METOLAZONE 2.5 MG TAB PO (12:43)
[2017-11-25 17:47] LABS: FLUID LD 3010 U/L
[2017-11-25 17:48] LABS: FLUID TOTAL PROTEIN < 2.0 g/dl; FLUID TYPE THORACENTESIS FLUID
[2017-11-25] MEDS: MAGNESIUM SULFATE 2 GM/50 ML 50 ML IVPB (18:06)
[2017-11-25] MEDS: POTASSIUM CHLORIDE 20 MEQ POWDER FOR ORAL SOLN PO ×2 (20:00→22:14)
[2017-11-25] MEDS: ATORVASTATIN 40 MG TAB PO (22:16)
[2017-11-25] MEDS: ZOLPIDEM 5 MG TAB PO (22:16)
[2017-11-25] MEDS: FUROSEMIDE 40 MG INJ IV (22:18)
[2017-11-25] MEDS: ACETAMINOPHEN 325 MG TAB PO (22:37)
[2017-11-26] MEDS: FUROSEMIDE 40 MG INJ IV ×2 (05:44→18:01)
[2017-11-26] MEDS: CEFAZOLIN 1 GM/50 ML (PMX) 50 ML IVPB ×3 (05:44→22:18)
[2017-11-26 07:37] LABS: ADD MAN DIFF? NO
[2017-11-26 07:49] LABS: HEMOGLOBIN A1C 6.2 % (0-5.9)
[2017-11-26 07:50] LABS: WHITE BLOOD COUNT 21.7 10^3/ul (4.8-10.8)
[2017-11-26 07:50] LABS: ABNORMAL IP MESSAGE 1; BASOPHILS % 0.1 % (0.0-2.0); HEMOGLOBIN 9.5 g/dl (14.0-18.0); LYMPHOCYTES # 0.6 10^3/ul (0.8-2.9); LYMPHOCYTES % 2.7 % (15.0-51.0); MEAN CORPUSCULAR HEMOGLOBIN 23.5 pg (29.0-33.0); MEAN CORPUSCULAR HGB CONC 30.6 g/dl (32.0-37.0); MEAN CORPUSCULAR VOLUME 76.7 fl (82.0-101.0); MEAN PLATELET VOLUME 10.5 fl (7.4-10.4); MONOCYTES % 13.9 % (0.0-11.0); NEUTROPHIL # 17.3 10^3/ul (1.6-7.5); NEUTROPHILS % 79.8 % (39.0-77.0); PLATELET COUNT 430 10^3/UL (140-415); POSITIVE DIFF @See below; RED BLOOD COUNT 4.04 10^6/ul (4.70-6.10); RED CELL DISTRIBUTION WIDTH 21.5 % (11.5-14.5)
[2017-11-26 08:02] LABS: CHOLESTEROL 135 mg/dl (100-200)
[2017-11-26 08:02] LABS: CHOL/HDL RATIO 6.4 RATIO; HDL CHOLESTEROL 21 mg/dl (30-78); LDL CHOLESTEROL,CALCULATED 82 mg/dl; TRIGLYCERIDES 159 mg/dl (0-149)
[2017-11-26] MEDS: AMIODARONE 200 MG TAB PO (08:09)
[2017-11-26] MEDS: ASPIRIN 81 MG TAB PO (08:09)
[2017-11-26 08:14] LABS: ANION GAP 10 (8-16); BLOOD UREA NITROGEN 38 mg/dl (7-20); CALCIUM 8.4 mg/dl (8.4-10.2); CARBON DIOXIDE 32 mmol/L (21-31); CHLORIDE 96 mmol/L (97-110); CREATININE 1.25 mg/dl (0.61-1.24); GLUCOSE 115 mg/dl (70-220); MAGNESIUM 1.9 mg/dl (1.7-2.5); PHOSPHORUS 2.9 mg/dl (2.5-4.9); POTASSIUM 3.2 mmol/L (3.5-5.1); SODIUM 135 mmol/L (135-144)
[2017-11-26] MEDS: METOLAZONE 2.5 MG TAB PO (09:48)
[2017-11-26] MEDS: POTASSIUM CHLORIDE (SR) 20 MEQ TAB PO (11:47)
[2017-11-26] MEDS: morphine LIQ (10 MG/5 ML) CUP PO (14:22)
[2017-11-26] MEDS: ATORVASTATIN 40 MG TAB PO (20:34)
[2017-11-26] MEDS: ZOLPIDEM 5 MG TAB PO (22:18)
[2017-11-27] MEDS: CEFAZOLIN 1 GM/50 ML (PMX) 50 ML IVPB (05:14)
[2017-11-27] MEDS: FUROSEMIDE 40 MG INJ IV ×2 (05:14→17:18)
[2017-11-27] MEDS: GUAIFENESIN/DM 5ML CUP PO ×4 (07:34→21:07)
[2017-11-27] MEDS: ASPIRIN 81 MG TAB PO (08:26)
[2017-11-27] MEDS: AMIODARONE 200 MG TAB PO (08:26)
[2017-11-27] MEDS: METOLAZONE 2.5 MG TAB PO (08:27)
[2017-11-27 09:05] LABS: ADD MAN DIFF? NO
[2017-11-27 09:12] LABS: WHITE BLOOD COUNT 24.6 10^3/ul (4.8-10.8)
[2017-11-27 09:12] LABS: ABNORMAL IP MESSAGE 1; BASOPHILS % 0.1 % (0.0-2.0); HEMATOCRIT 30.8 % (42.0-52.0); HEMOGLOBIN 9.5 g/dl (14.0-18.0); LYMPHOCYTES # 0.6 10^3/ul (0.8-2.9); LYMPHOCYTES % 2.3 % (15.0-51.0); MEAN CORPUSCULAR HEMOGLOBIN 23.7 pg (29.0-33.0); MEAN CORPUSCULAR HGB CONC 30.8 g/dl (32.0-37.0); MEAN CORPUSCULAR VOLUME 76.8 fl (82.0-101.0); MEAN PLATELET VOLUME 10.4 fl (7.4-10.4); MONOCYTE # 2.5 10^3/ul (0.3-0.9); NEUTROPHIL # 20.7 10^3/ul (1.6-7.5); NEUTROPHILS % 84.1 % (39.0-77.0); PLATELET COUNT 459 10^3/UL (140-415); POSITIVE DIFF @See below; RED BLOOD COUNT 4.01 10^6/ul (4.70-6.10); RED CELL DISTRIBUTION WIDTH 21.6 % (11.5-14.5)
[2017-11-27 09:37] LABS: ANION GAP 10 (8-16); BLOOD UREA NITROGEN 34 mg/dl (7-20); CALCIUM 8.3 mg/dl (8.4-10.2); CARBON DIOXIDE 34 mmol/L (21-31); CHLORIDE 92 mmol/L (97-110); CREATININE 1.32 mg/dl (0.61-1.24); GLUCOSE 141 mg/dl (70-220); MAGNESIUM 1.7 mg/dl (1.7-2.5); PHOSPHORUS 2.7 mg/dl (2.5-4.9); POTASSIUM 3.1 mmol/L (3.5-5.1); SODIUM 133 mmol/L (135-144)
[2017-11-27 12:16] LABS: PROCALCITONIN 0.54 ng/mL (<0.10)
[2017-11-27] MEDS: PIPER-TAZO 2.25 GM (PMX) 50 ML IVPB (15:00)
[2017-11-27] MEDS: POTASSIUM CHLORIDE (SR) 20 MEQ TAB PO (15:00)
[2017-11-27] MEDS: clonAZEPAM 0.5 MG TAB PO (17:18)
[2017-11-27] MEDS: ACETAMINOPHEN 325 MG TAB PO (17:52)
[2017-11-27] MEDS ORDERED: VANCOMYCIN IV PER PHARMACY XX (19:00)
[2017-11-27 20:31] LABS: LACTIC ACID 2.6 mmol/L (0.5-2.0)
[2017-11-27 20:51] LABS: C-REACTIVE PROTEIN 22.4 mg/dl (0.0-0.9)
[2017-11-27] MEDS ORDERED: CEFAZOLIN 1 GM/50 ML (PMX) 50 ML IVPB (21:00)
[2017-11-27] MEDS: ATORVASTATIN 40 MG TAB PO (21:07)
[2017-11-27] MEDS: MEROPENEM 2 GM in SOD CHLORIDE 0.9% 100 ML IVPB (21:50)
[2017-11-27] MEDS ORDERED: CEFAZOLIN 2 GM/50 ML (PMX) 50 ML IVPB (22:00)
[2017-11-27] MEDS: ZOLPIDEM 5 MG TAB PO (22:26)
[2017-11-27] MEDS: VANCOMYCIN 1.25 GM in SOD CHLORIDE 0.45% 250 ML IVPB (22:27)
[2017-11-28] MEDS: ACETAMINOPHEN 325 MG TAB PO (03:34)
[2017-11-28] MEDS: MEROPENEM 2 GM in SOD CHLORIDE 0.9% 100 ML IVPB (05:44)
[2017-11-28] MEDS: FUROSEMIDE 40 MG INJ IV ×2 (05:44→17:46)
[2017-11-28 08:38] LABS: ADD MAN DIFF? NO
[2017-11-28 08:50] LABS: WHITE BLOOD COUNT 24.9 10^3/ul (4.8-10.8)
[2017-11-28 08:50] LABS: ABNORMAL IP MESSAGE 1; BASOPHILS % 0.2 % (0.0-2.0); HEMATOCRIT 30.9 % (42.0-52.0); HEMOGLOBIN 9.7 g/dl (14.0-18.0); LYMPHOCYTES # 0.7 10^3/ul (0.8-2.9); LYMPHOCYTES % 2.9 % (15.0-51.0); MEAN CORPUSCULAR HGB CONC 31.4 g/dl (32.0-37.0); MEAN CORPUSCULAR VOLUME 76.5 fl (82.0-101.0); MEAN PLATELET VOLUME 10.8 fl (7.4-10.4); MONOCYTE # 2.7 10^3/ul (0.3-0.9); MONOCYTES % 10.9 % (0.0-11.0); NEUTROPHIL # 20.6 10^3/ul (1.6-7.5); NEUTROPHILS % 82.5 % (39.0-77.0); PLATELET COUNT 481 10^3/UL (140-415); POSITIVE DIFF @See below; RED BLOOD COUNT 4.04 10^6/ul (4.70-6.10); RED CELL DISTRIBUTION WIDTH 22.2 % (11.5-14.5)
[2017-11-28 09:26] LABS: ANION GAP 9 (8-16); BLOOD UREA NITROGEN 35 mg/dl (7-20); CALCIUM 8.2 mg/dl (8.4-10.2); CARBON DIOXIDE 34 mmol/L (21-31); CHLORIDE 94 mmol/L (97-110); CREATININE 1.34 mg/dl (0.61-1.24); GLUCOSE 102 mg/dl (70-220); MAGNESIUM 1.7 mg/dl (1.7-2.5); PHOSPHORUS 2.8 mg/dl (2.5-4.9); POTASSIUM 3.1 mmol/L (3.5-5.1); SODIUM 134 mmol/L (135-144)
[2017-11-28] MEDS: ASPIRIN 81 MG TAB PO (09:55)
[2017-11-28] MEDS: METOLAZONE 2.5 MG TAB PO (09:55)
[2017-11-28] MEDS: AMIODARONE 200 MG TAB PO (09:56)
[2017-11-28] MEDS: CLOPIDOGREL 75 MG TAB PO (09:56)
[2017-11-28 11:16] LABS: ADD UMIC NO; UR ASCORBIC ACID NEGATIVE (NEGATIVE); UR BILIRUBIN (Dip) NEGATIVE (NEGATIVE); UR BLOOD (Dip) NEGATIVE (NEGATIVE); UR CLARITY CLEAR (CLEAR); UR COLOR YELLOW (YELLOW); UR GLUCOSE (Dip) NEGATIVE (NEGATIVE); UR KETONES (Dip) NEGATIVE (NEGATIVE); UR LEUKOCYTE ESTERASE (Dip) NEGATIVE Leu/ul (NEGATIVE); UR NITRITE (Dip) NEGATIVE (NEGATIVE); UR TOTAL PROTEIN (Dip) NEGATIVE (NEGATIVE); UR UROBILINOGEN (Dip) NEGATIVE (NEGATIVE)
[2017-11-28 12:20] LABS: ANISOCYTOSIS 2+ (0-0); BAND NEUTROPHILS #M 0.4 10^3/ul (0.0-0.6); BAND NEUTROPHILS % (M) 2 % (0-4); BURR CELLS 1+ (0-0); GIANT THROMBO% (M) 3 % (0-0); HYPOCHROMASIA 1+ (0-0); LYMPHOCYTES #M 0.2 10^3/ul (0.8-2.9); LYMPHOCYTES % (M) 1 % (15-51); MICROCYTOSIS 1+ (0-0); MONOCYTE #M 1.2 10^3/ul (0.3-0.9); MONOCYTES % (M) 5 % (0-11); MYELOCYTES #M 0.4 10^3/ul (0.0-0.0); MYELOCYTES % (M) 2 % (0-0); PLATELET ESTIMATE NORMAL; POIKILOCYTOSIS 2+ (0-0); POLYCHROMASIA 1+ (0-0); SEG NEUT #M 22.5 10^3/ul (1.6-7.5); SEGMENTED NEUTROPHILS (M) % 90 % (39-77); SMUDGE%M 5 % (0-0); TARGET CELLS 1+ (0-0)
[2017-11-28] MEDS: POTASSIUM CHLORIDE (SR) 20 MEQ TAB PO (13:30)
[2017-11-28] MEDS: MEROPENEM 1 GM/50ML(PMX) 50 ML IVPB ×2 (13:30→21:25)
[2017-11-28] MEDS: morphine LIQ (10 MG/5 ML) CUP PO (15:24)
[2017-11-28] MEDS: GUAIFENESIN/DM 5ML CUP PO (17:46)
[2017-11-28] MEDS: ATORVASTATIN 40 MG TAB PO (20:59)
[2017-11-28] MEDS: ZOLPIDEM 5 MG TAB PO (22:12)
[2017-11-28] MEDS: VANCOMYCIN 1 GM 250 ML IVPB (22:12)
[2017-11-29] MEDS: clonAZEPAM 0.5 MG TAB PO (00:58)
[2017-11-29] MEDS: GUAIFENESIN/DM 5ML CUP PO (02:26)
[2017-11-29] MEDS: FUROSEMIDE 40 MG INJ IV (05:49)
[2017-11-29] MEDS: MEROPENEM 1 GM/50ML(PMX) 50 ML IVPB ×2 (05:49→15:25)
[2017-11-29] MEDS: ASPIRIN 81 MG TAB PO (08:10)
[2017-11-29] MEDS: AMIODARONE 200 MG TAB PO (08:10)
[2017-11-29] MEDS: ACETAMINOPHEN 325 MG TAB PO (08:10)
[2017-11-29] MEDS: CLOPIDOGREL 75 MG TAB PO (08:10)
[2017-11-29] MEDS: METOLAZONE 2.5 MG TAB PO (08:18)
[2017-11-29 09:02] LABS: ADD MAN DIFF? NO
[2017-11-29 09:07] LABS: ABNORMAL IP MESSAGE 1; BASOPHIL # 0.1 10^3/ul (0.0-0.1); BASOPHILS % 0.3 % (0.0-2.0); HEMATOCRIT 30.3 % (42.0-52.0); HEMOGLOBIN 9.5 g/dl (14.0-18.0); LYMPHOCYTES # 0.7 10^3/ul (0.8-2.9); MEAN CORPUSCULAR HEMOGLOBIN 24.2 pg (29.0-33.0); MEAN CORPUSCULAR HGB CONC 31.4 g/dl (32.0-37.0); MEAN CORPUSCULAR VOLUME 77.1 fl (82.0-101.0); MEAN PLATELET VOLUME 10.6 fl (7.4-10.4); NEUTROPHIL # 20.1 10^3/ul (1.6-7.5); NEUTROPHILS % 80.9 % (39.0-77.0); PLATELET COUNT 466 10^3/UL (140-415); POSITIVE DIFF @See below; RED BLOOD COUNT 3.93 10^6/ul (4.70-6.10)
[2017-11-29 09:07] LABS: WHITE BLOOD COUNT 24.8 10^3/ul (4.8-10.8)
[2017-11-29 09:29] LABS: ANION GAP 8 (8-16); BLOOD UREA NITROGEN 41 mg/dl (7-20); CALCIUM 8.2 mg/dl (8.4-10.2); CARBON DIOXIDE 35 mmol/L (21-31); CHLORIDE 94 mmol/L (97-110); GLUCOSE 94 mg/dl (70-220); POTASSIUM 3.6 mmol/L (3.5-5.1); SODIUM 133 mmol/L (135-144)
[2017-11-29 09:34] LABS: PHOSPHORUS 2.9 mg/dl (2.5-4.9)
[2017-11-29 09:34] LABS: MAGNESIUM 1.6 mg/dl (1.7-2.5)
[2017-11-29 09:51] LABS: LACTIC ACID 1.8 mmol/L (0.5-2.0)
[2017-11-29] MEDS: morphine LIQ (10 MG/5 ML) CUP PO (10:34)
[2017-12-01 15:36] LABS: PROCALCITONIN 0.46 ng/mL (<0.10)
== END 2017-11-29 18:15 | disposition home health service (06) | DRG 180 ==
LOC: MS4 20:51 → E/R 17:13 → MS4 18:59
PROC: 0W9930Z Drainage of Right Pleural Cavity with Drainage Device, Percutaneous Approach (ICD-10-PCS; principal; 2017-11-25 10:35)
PROC: 0W993ZZ Drainage of Right Pleural Cavity, Percutaneous Approach (ICD-10-PCS; 2017-11-25 10:35)
PROC: 0W993ZX Drainage of Right Pleural Cavity, Percutaneous Approach, Diagnostic (ICD-10-PCS; 2017-11-25 10:35)
DX: C34.11 Malignant neoplasm of upper lobe, right bronchus or lung (principal); I50.23 Acute on chronic systolic (congestive) heart failure; I21.A1 Myocardial infarction type 2; J96.00 Acute respiratory failure, unspecified whether with hypoxia or hypercapnia; J18.9 Pneumonia, unspecified organism; N17.9 Acute kidney failure, unspecified; J91.0 Malignant pleural effusion; I13.0 Hypertensive heart and chronic kidney disease with heart failure and stage 1 through stage 4 chronic kidney disease, or unspecified chronic kidney disease; C78.7 Secondary malignant neoplasm of liver and intrahepatic bile duct; C77.1 Secondary and unspecified malignant neoplasm of intrathoracic lymph nodes; E87.2 Acidosis; N18.4 Chronic kidney disease, stage 4 (severe); E44.0 Moderate protein-calorie malnutrition; C79.51 Secondary malignant neoplasm of bone; C79.89 Secondary malignant neoplasm of other specified sites; I73.9 Peripheral vascular disease, unspecified; I25.10 Atherosclerotic heart disease of native coronary artery without angina pectoris; I25.5 Ischemic cardiomyopathy; E87.6 Hypokalemia; E78.5 Hyperlipidemia, unspecified; J44.9 Chronic obstructive pulmonary disease, unspecified; E83.9 Disorder of mineral metabolism, unspecified; D50.9 Iron deficiency anemia, unspecified; Z95.1 Presence of aortocoronary bypass graft; Z68.22 Body mass index [BMI] 22.0-22.9, adult; Z95.810 Presence of automatic (implantable) cardiac defibrillator
CPT/HCPCS: 32555; 36415; 36600; 70450; 71045; 71250; 76942; 80048; 80053; 80061; 80202; 81003; 82043; 82550; 82553; 82728; 82803; 83036; 83540; 83605; 83615; 83690; 83735; 83880; 84100; 84145; 84155; 84157; 84300; 84484; 85025; 85049; 85610; 85670; 85730; 86140; 87040; 87070; 87081; 87086; 87102; 87116; 87400; 93005; 94640; 94644; 94664; 96374; 96375; 97110; 97163; 99291-25; J1940